=== PATIENT | female | born 1995 | race Hispanic/Latino ===

== ENCOUNTER → 2018-11-26 12:18 | Outpatient (CLI) | payer OTHER, SELFPAY ==
--- NOTE | 2018-12-03 16:09 | PM.PFT.1 ---
Pulmonary Function Test Referral & Results Date Patient Seen: 11/26/18 Requesting provider: Karina Hickman Results: The spirometry demonstrates an FVC of 3.49 L which is 101% of predicted. The FEV1 was measured at 2.87 L which is 95% of predicted. The FEV1/FVC ratio was 82 which is 95% of predicted. Following the administration of bronchodilator there was no appreciable change. Lung volumes show an SVC of 3.33 L which is 95% of predicted. The diffusing capacity was measured at 25.69 which is 127% of predicted. The maximum voluntary ventilation was normal Interpretation: This study demonstrates normal pulmonary function
== END ==
PROVIDERS: Visit Provider Internal Medicine Critical Care Medicine
DX: R05 Cough (principal); J98.8 Other specified respiratory disorders; Z87.891 Personal history of nicotine dependence
CPT/HCPCS: 94060; 94726; 94729

== ENCOUNTER 2021-09-11 08:30 | Outpatient (RCR) | payer OTHER, SELFPAY ==
--- NOTE | 2021-03-19 14:18 | OT.OP.EVAL ---
Visit Care Team Role Provider Type Telma Delaney MD Attending Provider Non-Staff Referring Provider Specialty: Medical Address: [address] [place] [address], [id number] Email: Occupational Therapy Initial Evaluation OT Outpatient Adult Evaluation Start: 03/19/21 10:20 Freq: Status: Active Protocol: Document 03/19/21 14:00 AMS (Rec: 03/19/21 14:17 AMS [id number]) General Information Visit Start Time 07:30 Visit Stop Time 08:15 Total Visit Minutes 45 Plan of Care Dates 03/19/21 - 05/14/21 Insurance Information [facility] Treatment Setting Outpatient Care Note Type Initial Evaluation Goals Treatment Establishment of HEP. Modified push-ups at wall. Weight shifting left <--> right at wall/TT; progression to weight bearing in circular fashion. Modified weight shifting of box at wall. Short Term Goals 1. Betty will present with improved ability to weight bear through the left distal upper extremity; this will be evidenced by her ability to execute x 10 modified knee push-ups at mat level. Care Home Goals 1. Betty will be modified independent with home exercise program utilizing provided written and visual instructions from therapist. 2. Betty will present with improved ability to participate and execute work based tasks; this will be evidenced by Betty obtaining a score of 25.0 or less on QuickDASH UE Work Module. Assessment/Plan Treatment Assessment Betty is a 25 year-old right hand dominant female referred to outpatient OT secondary to left wrist pain. Betty reports being seen in January by PT for 2 visits; she was reportedly provided with yellow theraputty and instructed to not wear wrist brace. Initial injury occurred while completing a task at work when she had her wrist/ fingers in an awkward position and was trying to manage heavy/large object. 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 Pain Assessment Grid was completed; she indicated 2 out of 10 relative to dorsal left wrist and 1 out of 10 relative to volar left wrist pain. She obtained a QuickDASH UE Outcome Measure Score = 11 .36; QuickDASH UE Outcome Measure Work Module Score = 56 .25. L wrist AROM 0-60 degrees active left wrist flex; 0-73 degrees active left wrist ext; 0-[address] left wrist [address]; 0-30 degrees active left wrist UD. MMT 5/5 left wrist ext; 5/5 left wrist flex ; 5/[address]; 4+/5 left wrist UD. Avg 67# of force w/ L agricultural chemist and 80# of force w/ R agricultural chemist for dynamometer II strength testing. Crepitus noted ulnarly; decreased tolerance for weight bearing. Unable to execute push-ups and /or push/pull large or heavy objects. Decreased static/ dynamic stability of left wrist. Betty will be departing from the area for several weeks for work; she will be returning to the area in April. Betty was provided with exercises/activities to address impairments and to support her ability to complete functional tasks in a variety of environments. Based on feedback from Betty, will schedule follow-up in April. Comment 8 weeks Treatment Frequency Once a Week Comment 1 x every other week versus follow-up visit Therapeutic Contents Active Range of Motion, Adaptive Equipment Education, Client Education,Functional Activities,Group Therapy,Home Exercise Program,Joint Protection,Manual Therapy, Education,Neurodevelopment Treatment,Neuromuscular Re- Education,Self-Care, Therapeutic Activities, Therapeutic Exercises, Modalities Types of Modalities Ultrasound Additional Types of Modalities Heat/Ice/Contrast Baths/ Paraffin
--- NOTE | 2021-05-02 15:53 | OT.OP.TRT ---
Visit Care Team Role Provider Type Telma Delaney MD Attending Provider Non-Staff Referring Provider Specialty: Medical Address: [address] [place] [address], [id number] Email: Occupational Therapy Treatment Note OT Outpatient Treatment Note - Adult Start: 03/19/21 10:20 Freq: Status: Active Protocol: Document 05/02/21 15:41 AMS (Rec: 05/02/21 15:52 AMS [id number]) OT Outpatient Adult Treatment Note Session Time Visit Start Time 12:45 Visit Stop Time 13:15 Total Visit Minutes 30 Visit Information Visit Number 02/20 Plan of Care Dates 03/19/21 - 05/14/21 Setting Treatment Setting Outpatient Care Visit Type Note Type Treatment Note General Information General Information Betty is a 25 year-old right hand dominant female referred to outpatient OT secondary to left wrist pain. Betty reports being seen in January by PT for 2 visits; she was reportedly provided with yellow theraputty and instructed to not wear wrist brace. Initial injury occurred while completing a task at work when she had her wrist/ fingers in an awkward position and was trying to manage heavy/large object. 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 - Subjective Identification Type Name Identification Reconciled With Medical Record Observations Betty reported discomfort of posterior, ulnar surface of left wrist w/ management of ladder. Patient/Caregiver Compliance with Home Fair Exercise Program - Objective Objective Measurements Please refer to below for progress towards meeting established OT goals: Short Term Goals 1. Betty will present with improved ability to weight bear through the left distal upper extremity; this will be evidenced by her ability to execute x 10 modified knee push-ups at mat level. Long-Term Goals 1. Betty will be modified independent with home exercise program utilizing provided written and visual instructions from therapist. 2. Betty will present with improved ability to participate and execute work based tasks; this will be evidenced by Betty obtaining a score of 25.0 or less on QuickDASH UE Work Module. - Treatment 2 Descriptor Manual therapy. Passive range of motion. Ulnar surface of wrist. 1 Descriptor Ultrasound. 20% duty cycle. 2. 0 w/cm2 to dorsal/ulnar surface of wrist. x 8 minutes. Skin intact pre- and post- treatment. Addressing swelling . - Assessment Assessment of Improvement Betty reported completing stretches on site when the opportunity to do so arose ( job setting); she denied completing modified push-ups and/or engaging in additional strengthening exercises for the wrist. Tenderness to paplation of ulna; manual completed w/ recommendation to complete self-manual w/ use of racquetball (x 2 per day). Discomfort noted w/ passive wrist extension and UD combined with forearm supination and elbow extension . Discomfort lessened post manual work and passive range of motion by therapist. Recommended completed stretches (x 2 per day). Recommend progressing exercises as able/increase dynamic nature of exercises. - Plan Therapy Recommendations Continue with Current Program, Advance per Rehabilitation Protocol
--- NOTE | 2021-06-18 15:30 | OT.OPPN ---
Current Diagnoses Pain in left wrist (06/18/21) OT Progress Note OT Outpatient Treatment Note - Adult Start: 03/19/21 10:20 Freq: Status: Active Protocol: Document 06/18/21 15:53 AMS (Rec: 06/18/21 15:55 AMS [id number]) OT Outpatient Adult Treatment Note Session Time Visit Start Time 12:30 Visit Stop Time 13:05 Total Visit Minutes 35 Visit Information Visit Number 03/23 Plan of Care Dates 05/14/21 - 07/23/21 Insurance Information [facility] Setting Treatment Setting Outpatient Care Visit Type Note Type Progress Note General Information General Information Betty is a 26 year-old right hand dominant female referred to outpatient OT secondary to left wrist pain. Betty reports being seen in January by PT for 2 visits; she was reportedly provided with yellow theraputty and instructed to not wear wrist brace. Initial injury occurred while completing a task at work when she had her wrist/ fingers in an awkward position and was trying to manage heavy/large object. 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 - Subjective Identification Type Name Identification Reconciled With Medical Record Observations Gap in treatment d/t work obligations. Report of discomfort w/ intermittent lifting of weights and management of bowling ball. - Objective Objective Measurements Please refer to below for progress towards meeting established OT goals: Short Term Goals 1. Betty will present with improved ability to weight bear through the left distal upper extremity; this will be evidenced by her ability to execute x 10 modified knee push-ups at mat level. 06/18/21 = 25% met. Custodial Goals 1. Betty will be modified independent with home exercise program utilizing provided written and visual instructions from therapist. 2. Betty will present with improved ability to participate and execute work based tasks; this will be evidenced by Betty obtaining a score of 25.0 or less on QuickDASH UE Work Module. 06/18 = Score = 37.5. - Treatment 2 Descriptor Manual therapy. Passive range of motion. Ulnar surface of wrist. 1 Descriptor Ultrasound. 20% duty cycle. 2. 0 w/cm2 to dorsal/ulnar surface of wrist. x 8 minutes. Skin intact pre- and post- treatment. Addressing swelling . Exercises 1 Descriptor Wrist strengthening/ Stabilization. Wrist UD. TB #4. 3 x 15. Wall left hand slide to the left. TB #4. 3 x 15. Weight shift w/ chair dip left <-> R. 3 x 15. - Assessment Assessment of Improvement Gap in treatment occurred secondary to work obligations; Betty reported carry-over of stretches and use of ball for manual. QuickDASH UE Outcome Measure results suggest that patient has increasing ability to execute work-based tasks with active incorporation of the left hand/UE (score reduced from 56.5 to 37.5). Betty continues to c/o difficulties w/ managing weights/or heavy objects and weight bearing. Home exercise program was advanced; Betty was provided w/ personal TB #4 and #5 and took notes in personal cell phone to support carry-over (wrist UD strengthening, wall slide, chair dip weight shift). Continued outpatient OT is recommended to address wrist weakness and instability. - Plan Comment 10 weeks Frequency of Treatment Once a Week Therapeutic Contents Active Range of Motion, Adaptive Equipment Education, Client Education,Functional Activities,Home Exercise Program,Joint Protection, Manual Therapy,Education, Neurodevelopment Treatment, Neuromuscular Re-Education, Self-Care,Stretching/ Flexibility Activities, Therapeutic Activities, Therapeutic Exercises, Modalities Modalities As Needed,As Prescribed Types of Modalities Contrast Bath,E-Stim,Ice Massage,Ultrasound Additional Types of Modalities paraffin bath/hot/cold/ice If you are in agreement with this Plan of Care, please return a signed and dated copy. I have reviewed this Plan of Care and certify that the skilled therapy services above are required to meet the patient?s needs. Physician Signature Date Printed Name and Credentials Clinical Instructor Signature Printed Name and Credentials
--- NOTE | 2021-06-25 15:32 | OT.OP.TRT ---
Visit Care Team Role Provider Type Telma Delaney MD Attending Provider Non-Staff Referring Provider Specialty: Medical Address: [address] [place] [address], [place], [address] Email: Occupational Therapy Treatment Note OT Outpatient Treatment Note - Adult Start: 03/19/21 10:20 Freq: Status: Active Protocol: Document 06/25/21 15:27 AMS (Rec: 06/25/21 15:32 AMS [id number]) OT Outpatient Adult Treatment Note Session Time Visit Start Time 12:30 Visit Stop Time 13:05 Total Visit Minutes 35 Visit Information Visit Number 04/20 Plan of Care Dates 05/14/21 - 07/23/21 Insurance Information [facility] Setting Treatment Setting Outpatient Care Visit Type Note Type Treatment Note General Information General Information Betty is a 26 year-old right hand dominant female referred to outpatient OT secondary to left wrist pain. Betty reports being seen in January by PT for 2 visits; she was reportedly provided with yellow theraputty and instructed to not wear wrist brace. Initial injury occurred while completing a task at work when she had her wrist/ fingers in an awkward position and was trying to manage heavy/large object. 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 - Subjective Identification Type Name Identification Reconciled With Medical Record Observations Report of discomfort w/ steering wheel management and post- moving (moved from home in [place]). - Objective Objective Measurements Please refer to below for progress towards meeting established OT goals: Short Term Goals 1. Betty will present with improved ability to weight bear through the left distal upper extremity; this will be evidenced by her ability to execute x 10 modified knee push-ups at mat level. 06/18/21 = 25% met. 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 Betty will be modified independent with home exercise program utilizing provided written and visual instructions from therapist. 2. Betty will present with improved ability to participate and execute work based tasks; this will be evidenced by Betty obtaining a score of 25.0 or less on QuickDASH UE Work Module. 06/18 = Score = 37.5. - Treatment 2 Descriptor Manual therapy. Passive range of motion of wrist. Joint mobilization to carpals. Mild crepitus. 1 Descriptor Ultrasound. 20% duty cycle. 2. 0 w/cm2 to dorsal/ulnar surface of wrist. x 10 minutes . Skin intact pre- and post- treatment. Addressing swelling . Exercises 1 Descriptor Wrist strengthening/ Stabilization. Wrist UD. TB #4. 1 x 15; instructed in alternative thumb up execution. Wall left hand slide to the left. TB #4. 3 x 15. Weight shift w/ chair dip left <-> R. 3 x 15. - Assessment Assessment of Improvement Inconsistency w/ home exercise program execution the past week d/t moving; discomfort/ fatigue reported w/ frequent weight shifting onto left side at floor level. Pain/ discomfort also reported w/ use of steering wheel and post - moving boxes d/t change in residence. Discussed modification to wrist UD strengthening exercise w/ thumb up/wrist in neutral versus at TT level. Reviewed importance of stretches/ passive range of motion. Mild crepitus noted w/ joint mobs of L wrist. Continued outpatient OT is recommended to address wrist weakness and instability. -
--- NOTE | 2021-07-01 15:24 | OT.OP.TRT ---
Visit Care Team Role Provider Type Telma Delaney MD Attending Provider Non-Staff Referring Provider Specialty: Medical Address: [address] [place] [address], [id number] Email: Occupational Therapy Treatment Note OT Outpatient Treatment Note - Adult Start: 03/19/21 10:20 Freq: Status: Active Protocol: Document 07/01/21 15:12 AMS (Rec: 07/01/21 15:23 AMS [id number]) OT Outpatient Adult Treatment Note Session Time Visit Start Time 12:30 Visit Stop Time 13:00 Total Visit Minutes 30 Visit Information Visit Number 05/21 Plan of Care Dates 05/14/21 - 07/23/21 Insurance Information [facility] Setting Treatment Setting Outpatient Care Visit Type Note Type Treatment Note General Information General Information Betty is a 26 year-old right hand dominant female referred to outpatient OT secondary to left wrist pain. Betty reports being seen in January by PT for 2 visits; she was reportedly provided with yellow theraputty and instructed to not wear wrist brace. Initial injury occurred while completing a task at work when she had her wrist/ fingers in an awkward position and was trying to manage heavy/large object. 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 - Subjective Identification Type Name Identification Reconciled With Medical Record Observations Report of intermittent discomfort of the left wrist w / prolonged weight bearing/use . - Objective Objective Measurements Please refer to below for progress towards meeting established OT goals: Short Term Goals 1. Betty will present with improved ability to weight bear through the left distal upper extremity; this will be evidenced by her ability to execute x 10 modified knee push-ups at mat level. 06/18/21 = 25% met. 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 Betty will be modified independent with home exercise program utilizing provided written and visual instructions from therapist. 2. Betty will present with improved ability to participate and execute work based tasks; this will be evidenced by Betty obtaining a score of 25.0 or less on QuickDASH UE Work Module. 06/18 = Score = 37.5. - Treatment 2 Descriptor Manual therapy. Passive range of motion of wrist. Joint mobilization to carpals. Mild crepitus. 1 Descriptor Ultrasound. 20% duty cycle. 2. 0 w/cm2 to dorsal/ulnar surface of wrist. x 10 minutes . Skin intact pre- and post- treatment. Addressing swelling . Exercises 1 Descriptor Wrist strengthening/ Stabilization. Blue disk. CW CCW. Alt hand walk at TT in standing. Weight shifting L <-> R both hands. 1 x 10. 500 gms. Angled trampoline over-hand throw and catch. 2 x 10. 2.2# weighted ball. Supination - underhand throw and catch. Pronation - ball drop and catch. 1 x 10. Squat machine. L arm only. 1 x 10. 12.0# resistance. N/A 07/01/21 Wrist UD. TB #4. 1 x 15; instructed in alternative thumb up execution. Wall left hand slide to the left. TB #4. 3 x 15. Weight shift w/ chair dip left <-> R. 3 x 15. - Assessment Assessment of Improvement Report of theraband use 2 x and carry-over of weight bearing recommendations. Report of discomfort w/ prolonged weight bearing and w / impact (catching weighted ball); report of wrist weakness. Betty will be out of town for work; work schedule was recently altered. Reviewed home exercise program; recommended investing in weighted ball (2.2# weighted ball) and continuing to increase number of repetitions w/ dynamic/static stability exercises. - Plan Therapy Recommendations Advance per Rehabilitation Protocol
--- NOTE | 2021-08-15 13:32 | OT.OPPN ---
Current Diagnoses Pain in left wrist (08/15/21) OT Progress Note OT Outpatient Treatment Note - Adult Start: 03/19/21 10:20 Freq: Status: Active Protocol: Document 08/15/21 13:15 AMS (Rec: 08/15/21 13:31 AMS [id number]) OT Outpatient Adult Treatment Note Session Time Visit Start Time 12:30 Visit Stop Time 13:05 Total Visit Minutes 35 Visit Information Visit Number 06/20 Plan of Care Dates 07/23/21 - 09/17/[address] [facility] Setting Treatment Setting Outpatient Care Visit Type Note Type Progress Note General Information General Information Betty is a 26 year-old right hand dominant female referred to outpatient OT secondary to left wrist pain. Betty reports being seen in January by PT for 2 visits; she was reportedly provided with yellow theraputty and instructed to not wear wrist brace. Initial injury occurred while completing a task at work when she had her wrist/ fingers in an awkward position and was trying to manage heavy/large object. 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 - Subjective Identification Type Name Identification Reconciled With Medical Record Observations Report of intermittent discomfort of the left wrist when managing 'closet' in living quarters and/or when having wrist in awkward positions. Patient/Caregiver Compliance with Home Fair Exercise Program - Objective Objective Measurements Please refer to below for progress towards meeting established OT goals: Short Term Goals 1. Betty will present with improved ability to weight bear through the left distal upper extremity; this will be evidenced by her ability to execute x 10 modified knee push-ups at mat level. 06/18/21 = 25% met. [facility] Goals 1. Betty will be modified independent with home exercise program utilizing provided written and visual instructions from therapist. 2. Betty will present with improved ability to participate and execute work based tasks; this will be evidenced by denial of exacerbation of left wrist pain/discomfort w/ maneuvering ladders at work utilizing modified approach as needed. GOALS MET Improved ability to participate and execute work based tasks; evidenced by Betty obtaining a score of 25 .0 or less on QuickDASH UE Work Module. *MET Score = 18. 75 - Treatment 2 Descriptor Manual therapy. Passive range of motion of wrist. Joint mobilization to carpals. Mild crepitus. 1 Descriptor Ultrasound. 20% duty cycle. 2. 0 w/cm2 to dorsal/ulnar surface of wrist. x 10 minutes . Skin intact pre- and post- treatment. Addressing swelling . Exercises 1 Descriptor Wrist strengthening/ Stabilization. TB#4 B Sh press. TB #4. Seated . 1 x 15. Modified bicep curls w/ sh press. 10# weight. 1 x 15. Weight shifting L <-> R. Mat level. Wood handles. 1 x 15 ( legs extended). 1 x 10 (knees bent). N/A 08/15/21 Blue disk. CW CCW. Alt hand walk at TT in standing. Weight shifting L <-> R both hands. 1 x 10. 500 gms. Angled trampoline over-hand throw and catch. 2 x 10. 2.2# weighted ball. Supination - underhand throw and catch. Pronation - ball drop and catch. 1 x 10. Squat machine. L arm only. 1 x 10. 12.0# resistance. N/A 07/01/21 Wrist UD. TB #4. 1 x 15; instructed in alternative thumb up execution. Wall left hand slide to the left. TB #4. 3 x 15. Weight shift w/ chair dip left <-> R. 3 x 15. - Assessment Assessment of Improvement Gaps in treatment have occurred d/t work requirements (active ). Betty has made some progress w/ outpatient OT; progress is evidenced by reduction in QuickDASH UE Work Module Score (reduced from 37.5 to 18.75) and QuickDASH UE Outcome Measure Score (reduced from 18 .18 to 9.09). She is actively utilizing resistant theraband for strengthening exercises; she has been limited in her ability to engage in recommended wrist stability exercises. Re-exacerbation of wrist symptoms seems to occur w/ work tasks (moving heavy objects, managing ladder ( predominantly when descending) , and when wrist/hand is in awkward position(s). Reviewed wrist positioning and upgraded HEP to floor dumbbell weight shifting and sh press w/ resistant TB. She would likely benefit from cont OT to advance stability exercises and support ability to complete and/or modify work tasks. - Plan Comment 8 weeks Frequency of Treatment Once a Week Therapeutic Contents Active Range of Motion, Adaptive Equipment Education, Client Education,Functional Activities,Home Exercise Program,Joint Protection, Manual Therapy,Education, Neurodevelopment Treatment, Neuromuscular Re-Education, Self-Care,Stretching/ Flexibility Activities, Therapeutic Activities, Therapeutic Exercises, Modalities,Sensory Re- education Modalities As Needed,As Prescribed Additional Types of Modalities Ultrasound/Heat/Ice/Contrast/e -stim/TENS If you are in agreement with this Plan of Care, please return a signed and dated copy. I have reviewed this Plan of Care and certify that the skilled therapy services above are required to meet the patient?s needs. Physician Signature Date Printed Name and Credentials Clinical Instructor Signature Printed Name and Credentials
--- NOTE | 2021-08-21 15:46 | OT.OP.TRT ---
Visit Care Team Role Provider Type Telma Delaney MD Attending Provider Non-Staff Referring Provider Specialty: Medical Address: [address] [place] [address], [id number] Email: Occupational Therapy Treatment Note OT Outpatient Treatment Note - Adult Start: 03/19/21 10:20 Freq: Status: Active Protocol: Document 08/21/21 15:38 AMS (Rec: 08/21/21 15:45 AMS [id number]) OT Outpatient Adult Treatment Note Session Time Visit Start Time 08:30 Visit Stop Time 09:05 Total Visit Minutes 35 Visit Information Visit Number 07/21 Plan of Care Dates 07/23/21 - 09/17/21 Insurance Information [facility] Setting Treatment Setting Outpatient Care Visit Type Note Type Treatment Note General Information General Information Betty is a 26 year-old right hand dominant female referred to outpatient OT secondary to left wrist pain. Betty reports being seen in January by PT for 2 visits; she was reportedly provided with yellow theraputty and instructed to not wear wrist brace. Initial injury occurred while completing a task at work when she had her wrist/ fingers in an awkward position and was trying to manage heavy/large object. 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 - Objective Objective Measurements Please refer to below for progress towards meeting established OT goals: Short Term Goals 1. Betty will present with improved ability to weight bear through the left distal upper extremity; this will be evidenced by her ability to execute x 10 modified knee push-ups at mat level. 06/18/21 = 25% met. Vmware Engineer Goals 1. Betty will be modified independent with home exercise program utilizing provided written and visual instructions from therapist. 2. Betty will present with improved ability to participate and execute work based tasks; this will be evidenced by denial of exacerbation of left wrist pain/discomfort w/ maneuvering ladders at work utilizing modified approach as needed. GOALS MET Improved ability to participate and execute work based tasks; evidenced by Betty obtaining a score of 25 .0 or less on QuickDASH UE Work Module. *MET Score = 18. 75 - Treatment 1 Descriptor Ultrasound. x 15 minutes. Medial ulnar/dorsal surface of L forearm. Address swelling/ discomfort. 20% duty cycle. 2. 0 w/cm2. Skin intact pre- and post- treatment. Exercises 2 Descriptor Passive range of motion. Distal UE stretches. Hold 25 sec per exercise. 1 Descriptor Wrist strengthening/ Stabilization. UEB 5 min. Bilateral. Seated. 4.4# spherical weighted ball throw. Angled trampoline. 3 x 10. 4.4# spherical weighted ball light toss and catch underhand . 3 x 10. N/A 08/21 TB#4 B Sh press. TB #4. Seated . 1 x 15. Modified bicep curls w/ sh press. 10# weight. 1 x 15. Weight shifting L <-> R. Mat level. Wood handles. 1 x 15 ( legs extended). 1 x 10 (knees bent). N/A 08/15/21 Blue disk. CW CCW. Alt hand walk at TT in standing. Weight shifting L <-> R both hands. 1 x 10. 500 gms. Angled trampoline over-hand throw and catch. 2 x 10. 2.2# weighted ball. Supination - underhand throw and catch. Pronation - ball drop and catch. 1 x 10. Squat machine. L arm only. 1 x 10. 12.0# resistance. N/A 07/01/21 Wrist UD. TB #4. 1 x 15; instructed in alternative thumb up execution. Wall left hand slide to the left. TB #4. 3 x 15. Weight shift w/ chair dip left <-> R. 3 x 15. - Assessment Assessment of Improvement Re-exacerbation of wrist symptoms occurred d/t recent repetitive work task (sanding/ re-painting airplane); report of inability to lift up small dog after 3 days of work on airplane. Discomfort/soreness reported along dorsal/ulnar surface of left forearm. Avoided body weight bearing given fatigue/presenting symptoms. She would likely benefit from cont OT to advance stability exercises and support ability to complete and/or modify work tasks. - Plan Therapy Recommendations Continue with Current Program, Advance per Rehabilitation Protocol
--- NOTE | 2021-09-05 15:30 | OT.OP.TRT ---
Visit Care Team Role Provider Type Telma Delaney MD Attending Provider Non-Staff Referring Provider Specialty: Medical Address: [address] [place] [address], [place], [address] Email: Occupational Therapy Treatment Note OT Outpatient Treatment Note - Adult Start: 03/19/21 10:20 Freq: Status: Active Protocol: Document 09/05/21 15:30 AMS (Rec: 09/06/21 08:21 AMS [id number]) OT Outpatient Adult Treatment Note Session Time Visit Start Time 12:30 Visit Stop Time 13:05 Total Visit Minutes 35 Visit Information Visit Number 08/20 Plan of Care Dates 07/23/21 - 09/17/21 Insurance Information [facility] Setting Treatment Setting Outpatient Care Visit Type Note Type Treatment Note General Information General Information Betty is a 26 year-old right hand dominant female referred to outpatient OT secondary to left wrist pain. Betty reports being seen in January by PT for 2 visits; she was reportedly provided with yellow theraputty and instructed to not wear wrist brace. Initial injury occurred while completing a task at work when she had her wrist/ fingers in an awkward position and was trying to manage heavy/large object. 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 - Subjective Identification Type Name Identification Reconciled With Medical Record Observations No new concerns were reported. 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 - Objective Objective Measurements Please refer to below for progress towards meeting established OT goals: Short Term Goals 1. Betty will present with improved ability to weight bear through the left distal upper extremity; this will be evidenced by her ability to execute x 10 modified knee push-ups at mat level. 06/18/21 = 25% met. Dance Artist Goals 1. Betty will be modified independent with home exercise program utilizing provided written and visual instructions from therapist. 2. Betty will present with improved ability to participate and execute work based tasks; this will be evidenced by denial of exacerbation of left wrist pain/discomfort w/ maneuvering ladders at work utilizing modified approach as needed. GOALS MET Improved ability to participate and execute work based tasks; evidenced by Betyt obtaining a score of 25 .0 or less on QuickDASH UE Work Module. *MET Score = 18. 75 - Treatment 1 Descriptor Ultrasound. x 15 minutes. Medial ulnar/dorsal surface of L forearm. Address swelling/ discomfort. 20% duty cycle. 2. 0 w/cm2. Skin intact pre- and post- treatment. Exercises 2 Descriptor Passive range of motion. Distal UE stretches. 1 Descriptor Wrist strengthening/ Stabilization. UEB x 5 min. Bilateral. Seated . 4.4# spherical weighted ball throw. Angled trampoline. 3 x 10. 4.4# spherical weighted ball light toss and catch underhand . 3 x 10. Bicep curls cable. Bilateral. Bar. 20#. 3 x 10. Single arm squat machine. 25#. 2 x 10. Bar push-up w/ forearms supinated. 3 x 10. Bosu. L <-> R weight bearing. 3 x 10. N/A 08/21 TB#4 B Sh press. TB #4. Seated . 1 x 15. Modified bicep curls w/ sh press. 10# weight. 1 x 15. Weight shifting L <-> R. Mat level. Wood handles. 1 x 15 ( legs extended). 1 x 10 (knees bent). N/A 08/15/21 Blue disk. CW CCW. Alt hand walk at TT in standing. Weight shifting L <-> R both hands. 1 x 10. 500 gms. Angled trampoline over-hand throw and catch. 2 x 10. 2.2# weighted ball. Supination - underhand throw and catch. Pronation - ball drop and catch. 1 x 10. Squat machine. L arm only. 1 x 10. 12.0# resistance. N/A 07/01/21 Wrist UD. TB #4. 1 x 15; instructed in alternative thumb up execution. Wall left hand slide to the left. TB #4. 3 x 15. Weight shift w/ chair dip left <-> R. 3 x 15. 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 Betty [facility]. No exacerbation of wrist symptoms; this may be d/t being on leave from work given upcoming deployment. She has been actively working on weight bearing for HEP. Upgraded ther ex completed in treatment; discomfort only reported when catching weighted spherical ball with small underhand toss. - Plan Additional Therapy Recommendations Will be transitioning to HEP.
--- NOTE | 2021-09-11 09:19 | OT.OP.DC ---
Visit Care Team Role Provider Type Telma Delaney MD Attending Provider Non-Staff Referring Provider Address: [address] [place] [address], [phone] Email: OT Outpatient OT Outpatient Adult Evaluation Start: 03/19/21 10:20 Freq: Status: Active Protocol: Document 03/19/21 14:00 AMS (Rec: 03/19/21 14:17 AMS [id number]) General Information Session Time Visit Start Time 07:30 Visit Stop Time 08:15 Total Visit Minutes 45 Visit Information Plan of Care Dates 03/19/21 - 05/14/21 Insurance Information [employer] Setting Treatment Setting Outpatient Care Visit Type Note Type Initial Evaluation Goals Treatment Treatment Establishment of HEP. Modified push-ups at wall. Weight shifting left <--> right at wall/TT; progression to weight bearing in circular fashion. Modified weight shifting of box at wall. Short Term Goals Short Term Goals 1. Betty will present with improved ability to weight bear through the left distal upper extremity; this will be evidenced by her ability to execute x 10 modified knee push-ups at mat level. Fdc Goals Carry In Worker Goals 1. Betty will be modified independent with home exercise program utilizing provided written and visual instructions from therapist. 2. Betty will present with improved ability to participate and execute work based tasks; this will be evidenced by Betty obtaining a score of 25.0 or less on QuickDASH UE Work Module. Assessment/Plan Assessment Treatment Assessment Betty is a 25 year-old right hand dominant female referred to outpatient OT secondary to left wrist pain. Betty reports being seen in January by PT for 2 visits; she was reportedly provided with yellow theraputty and instructed to not wear wrist brace. Initial injury occurred while completing a task at work when she had her wrist/ fingers in an awkward position and was trying to manage heavy/large object. 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 Pain Assessment Grid was completed; she indicated 2 out of 10 relative to dorsal left wrist and 1 out of 10 relative to volar left wrist pain. She obtained a QuickDASH UE Outcome Measure Score = 11 .36; QuickDASH UE Outcome Measure Work Module Score = 56 .25. L wrist AROM 0-60 degrees active left wrist flex; 0-73 degrees active left wrist ext; 0-[address] left wrist [address]; 0-30 degrees active left wrist UD. MMT 5/5 left wrist ext; 5/5 left wrist flex ; 5/[address]; 4+/5 left wrist UD. Avg 67# of force w/ L market sales manager and 80# of force w/ R market sales manager for dynamometer II strength testing. Crepitus noted ulnarly; decreased tolerance for weight bearing. Unable to execute push-ups and /or push/pull large or heavy objects. Decreased static/ dynamic stability of left wrist. Betty will be departing from the area for several weeks for work; she will be returning to the area in April. Betty was provided with exercises/activities to address impairments and to support her ability to complete functional tasks in a variety of environments. Based on feedback from Betty, will schedule follow-up in April. Plan Comment 8 weeks Treatment Frequency Once a Week Comment 1 x every other week versus follow-up visit Therapeutic Contents Active Range of Motion, Adaptive Equipment Education, Client Education,Functional Activities,Group Therapy,Home Exercise Program,Joint Protection,Manual Therapy, Education,Neurodevelopment Treatment,Neuromuscular Re- Education,Self-Care, Therapeutic Activities, Therapeutic Exercises, Modalities Types of Modalities Ultrasound Additional Types of Modalities Heat/Ice/Contrast Baths/ Paraffin Sensory Assessment Sensory Profile2 Functional Wrist/Hand Scan Hand Side OT Outpatient Treatment Note - Adult Start: 03/19/21 10:20 Freq: Status: Active Protocol: Document 09/11/21 09:10 AMS (Rec: 09/11/21 09:19 AMS [id number]) OT Outpatient Adult Treatment Note Session Time Visit Start Time 08:30 Visit Stop Time 09:05 Total Visit Minutes 35 Visit Information Visit Number 09/20 Plan of Care Dates 07/23/21 - 09/17/21 Insurance Information [employer] Setting Treatment Setting Outpatient Care Visit Type Note Type Treatment Note General Information General Information Betty is a 26 year-old right hand dominant female referred to outpatient OT secondary to left wrist pain. Betty reports being seen in January by PT for 2 visits; she was reportedly provided with yellow theraputty and instructed to not wear wrist brace. Initial injury occurred while completing a task at work when she had her wrist/ fingers in an awkward position and was trying to manage heavy/large object. 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 - Subjective Identification Type Name Identification Reconciled With Medical Record Observations No new concerns were reported. Weight bearing has not been a problem. I didn't notice anything when I had to do a lot of weight bearing at work yesterday. I also used the drill and it wasn't a problem. It was just this morning that it was hurting because my was laying on wrist and sleeping per Betty. I packed up all my PT equipment to bring with me on deployment . Pain Assessment Grid was completed; 2 out of 10 indicated on Pain Scale. - Objective Objective Measurements Please refer to below for progress towards meeting established OT goals: Short Term Goals GOALS MET Improved ability to weight bear through the left distal upper extremity; this will be evidenced by her ability to execute x 10 modified knee push-ups at mat level. *MET 09/11/21 Fdc Goals GOALS MET Improved ability to participate and execute work based tasks; evidenced by Betty obtaining a score of 25 .0 or less on QuickDASH UE Work Module. *MET Score = 18. 75 Modified independent with home exercise program utilizing provided written and visual instructions from therapist. * MET 09/11/21 Improved ability to participate and execute work based tasks; this will be evidenced by denial of exacerbation of left wrist pain/discomfort w/ maneuvering ladders at work utilizing modified approach as needed. * MET 09/11/21 - Exercises 2 Descriptor Passive range of motion. Distal UE stretches. 1 Descriptor Wrist strengthening/ Stabilization. UEB x 9 min. Bilateral. Seated . 5.5# spherical weighted ball throw. Angled trampoline. 3 x 10. 5.5# spherical weighted ball light toss and catch underhand . 3 x 10. Bicep curls cable. Bilateral. Bar. 20#. 1 x 10. Single arm squat machine. 25#. 1 x 10. 12#. 2 x 10. Bosu. L <-> R weight bearing. 3 x 10. N/A 08/21 TB#4 B Sh press. TB #4. Seated . 1 x 15. Modified bicep curls w/ sh press. 10# weight. 1 x 15. Weight shifting L <-> R. Mat level. Wood handles. 1 x 15 ( legs extended). 1 x 10 (knees bent). N/A 08/15/21 Blue disk. CW CCW. Alt hand walk at TT in standing. Weight shifting L <-> R both hands. 1 x 10. 500 gms. Angled trampoline over-hand throw and catch. 2 x 10. 2.2# weighted ball. Supination - underhand throw and catch. Pronation - ball drop and catch. 1 x 10. Squat machine. L arm only. 1 x 10. 12.0# resistance. N/A 07/01/21 Wrist UD. TB #4. 1 x 15; instructed in alternative thumb up execution. Wall left hand slide to the left. TB #4. 3 x 15. Weight shift w/ chair dip left <-> R. 3 x 15. 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 Discussed resuming outpatient OT services upon return from deployment given concern w/ exacerbating pain/discomfort of left wrist d/t work based tasks/awkward positioning of wrist/distal UE. Will follow- up as appropriate. - Plan Therapy Recommendations Discharge from Occupational Therapy
== END 2021-09-12 12:17 ==
LOC: OT 08:30
PROVIDERS: Referring Provider Internal Medicine; Visit Provider Internal Medicine
DX: M25.532 Pain in left wrist (principal)
CPT/HCPCS: 97035; 97110; 97140; 97165